=== PATIENT | male | born 1980 | race Caucasian/White ===

== ENCOUNTER 2019-04-19 12:09 | Emergency (ER) | payer BC ==
[~2019-04-19] VITALS: Ht 172.7 cm; Wt 104.5 kg
[2019-04-19 12:14] VITALS: Ht 172.7 cm; Wt 104.5 kg
[2019-04-19] MEDS ORDERED: SOD CHLORIDE 0.9% 1,000 ML IV STA (12:18)
[2019-04-19] MEDS ORDERED: LORAZEPAM 2 MG INJ IV STA (12:18)
[2019-04-19] MEDS ORDERED: KETOROLAC 30 MG INJ IV STA (12:31)
[2019-04-19 13:38] VITALS: BP 109/79; PULSE 89; RESP 22
== END 2019-04-19 13:39 | disposition home or self-care (01) ==
LOC: E/R 12:09
DX: M25.561 Pain in right knee (principal); R40.2142 Coma scale, eyes open, spontaneous, at arrival to emergency department; R40.2252 Coma scale, best verbal response, oriented, at arrival to emergency department; R40.2362 Coma scale, best motor response, obeys commands, at arrival to emergency department
CPT/HCPCS: 36415; 73562; 80048; 85025; 96374; 96375; 99284; J1885; J2060; J7030